=== PATIENT | male | born 1990 | race Caucasian/White ===

== ENCOUNTER 2016-11-14 23:22 | Emergency (ER) | payer OTHER ==
[~2016-11-14] VITALS: Ht 185.4 cm; Wt 124.7 kg
[~2016-11-14 23:22] MED LIST: ACETAMINOPHEN500 M3 ORAL; ALPRAZOLAM1 MG ORAL; ASPIRIN81 M3 PO; ATIVAN1 MG ORAL; ATIVAN2 MG ORAL; DEPAKOTE500 MG PO; LAMICTAL100 MG ORAL; LAMICTAL25 MG ORAL; LEVOTHYROXINE100 MCG ORAL; NORCO 5-325 TA1 EACH ORAL; OMEPRAZOLE20 M2 ORAL; SYNTHROID100 MCG ORAL; TRAMADOL HCL50 MG ORAL; XARELTO10 MG ORAL; XARELTO20 MG ORAL; ZOLOFT100 MG ORAL
[2016-11-14 23:35] VITALS: BP 143/95
[2016-11-14 23:55] VITALS: BP 143/95
--- NOTE | 2016-11-14 23:57 | Emergency Room Report ---
History of Present Illness General Chief Complaint: Chest Pain Source: Patient Present Illness HPI This is a 26-year-old male who lives in [place] yet he came here for chief complaint of chest pain. He said that he has a history of protein S deficiency and has history of DVT and PE. He is currently taking Xarelto. He said that he was in [place] about a week ago and had chest pain. He was on Coumadin at that time. He said they did two CT scans of his chest. The first one showed a large clots. Subsequently, the second one to 2 small clots in the upper lobes. He was switched to Xarelto's. He said he was doing fine until he got acute chest pain about 2 hours ago. He came here to be seen. Pain is 8/10. No fever or chills. No nausea no vomiting. No short of breath. No other complaint. Allergies: Coded Allergies: KETOROLAC (Unverified Allergy, Unknown, 01/13/14) PENICILLINS (Verified Allergy, Unknown, 01/13/14) SULFA (SULFONAMIDE ANTIBIOTICS) (Unverified Allergy, Unknown, 01/13/14) TETRACYCLINES (Verified Allergy, Unknown, 01/13/14) Patient History Past Medical History: see triage record, old chart reviewed Past Surgical History: other Pertinent Family History: none Social History: Denies: smoking Immunizations: other Reviewed Nursing Documentation: PMH: Agreed, PSxH: Agreed Nursing Documentation-PMH Hx Pacemaker: No Hx Asthma: No Hx COPD: No - PULMONARY EMBOLISM Hx Diabetes: No Hx Cancer: No Hx Gastrointestinal Problems: Yes Hx Dialysis: No Hx Neurological Problems: Yes Hx Cerebrovascular Accident: Yes - TIA Hx Transient Ischemic Attacks: No Hx Dementia: No Hx Alzheimer's Disease: No Hx Parkinson's Disease: No Hx Meningitis: No Hx Encephalitis: No Hx Seizures: Yes Hx Epilepsy: No Hx Multiple Sclerosis: No Hx Cerebral Palsy: No Hx Amyotrophic Lat Sclerosis: No Hx [place] Syndrome: No Hx Paralysis: No Hx Peripheral Neuropathy: No Hx Spinal Cord Injury: No Hx Head Trauma: No Hx Traumatic Brain Injury: No Hx Memory Loss: No Hx Concentration Difficulty: No Hx Speech Problem: No Hx Tremors: No Hx Vertigo: No Hx Dizziness: No Hx Syncope: No Hx Headaches: No Hx Aphasia: No Hx Dysphasia: No Hx Numbness: No Hx Weakness: No Hx Fatigue: No Hx Neurologic Surgery: No Hx Brain Shunt: No Review of Systems Eye: Denies: blurred vision, eye pain ENT: Denies: ear pain, nose congestion, throat swelling Respiratory: Denies: cough, shortness of breath Cardiovascular: Reports: chest pain, Denies: palpitations Gastrointestinal: Denies: abdominal pain, diarrhea, nausea, vomiting Musculoskeletal: Denies: back pain, joint pain Skin: Denies: rash Neurological: Denies: headache, numbness Endocrine: Denies: increased thirst, increased urine Hematologic/Lymphatic: Denies: easy bruising All Other Systems: negative except mentioned in HPI Physical Exam Vital Signs Date Time Temp Pulse Resp B/P Pulse Ox O2 Delivery O2 Flow Rate FiO2 11/14/16 23:32 98.2 100 16 143/95 100 Room Air vitals normal Sp02 EP Interpretation: reviewed, normal General Appearance: well appearing, no apparent distress, alert Head: normocephalic, atraumatic Eyes: bilateral eye EOMI, bilateral eye PERRL ENT: hearing grossly normal, normal pharynx Neck: full range of motion, supple, no meningismus Respiratory: chest non-tender, lungs clear, normal breath sounds Cardiovascular #1: regular rate, rhythm, no murmur Gastrointestinal: normal bowel sounds, non tender, no mass, no organomegaly, no bruit, non-distended Musculoskeletal: back normal, gait/station normal, normal range of motion Psychiatric: mood/affect normal Skin: warm/dry Medical Decision Making Diagnostic Impression: Primary Impression: Chest pain Qualified Codes: R07.9 - Chest pain, unspecified Additional Impressions: Drug-seeking behavior Opioid dependence Qualified Codes: F11.20 - Opioid dependence, uncomplicated Atypical chest pain Malingering ER Course Patient presents with chest pain he said is consistent with his PE. I find that it is suspicious that he comes here to see the following in [place]. When I asked which hospital in [place] he went to, he said [facility]. Patient initially said that he does want IV pain medication. Only thing that will help is Dilaudid. He said that he doesn't want another CT scan. I told patient that there is no way of diagnosing a PE without a CT scan or a VQ scan. Both of which will give him radiation. I told patient that I will contact the hospital in [place] to see what happened. At this point, he said that he went to leave. He said he wanted to go to [facility] because if need be, they can put an IVC filter. He sat out AMA. No EKG or blood work done. No CAT scan done. I went ahead and called [facility] in [place]. . I spoke with the ER Dr. mclean. She tried to pull up the records under his name and date of . There was no visit by this patient to the hospital at any time. I suspect the patient is drug seeking and going to different hospitals for pain medication. Last Vital Signs Date Time Temp Pulse Resp B/P Pulse Ox O2 Delivery O2 Flow Rate FiO2 11/14/16 23:32 98.2 100 16 143/95 100 Room Air Disposition: AGAINST MEDICAL ADVICE Patient Instructions: Nonspecific Chest Pain Additional Instructions: You are leaving against medical advice. Follow up with your doctor AMALIA. ARSLAN FOX M.D. November 14, 2016 23:57
== END 2016-11-14 23:58 | disposition left against medical advice (07) ==
LOC: EMR 23:57
DX: R07.9 Chest pain, unspecified (principal); Z76.5 Malingerer [conscious simulation]; F11.20 Opioid dependence, uncomplicated; Z86.718 Personal history of other venous thrombosis and embolism; Z86.711 Personal history of pulmonary embolism; Z88.0 Allergy status to penicillin; Z88.2 Allergy status to sulfonamides; Z88.8 Allergy status to other drugs, medicaments and biological substances; Z86.73 Personal history of transient ischemic attack (TIA), and cerebral infarction without residual deficits
CPT/HCPCS: 99283